=== PATIENT | female | born 1975 | race Caucasian/White ===

== ENCOUNTER 2022-08-19 15:55 | Emergency (ER) | payer MEDICAID ==
[~2022-08-19] VITALS: Ht 152.4 cm; Wt 81.6 kg
[2022-08-19 16:41] VITALS: BP 179/77
--- NOTE | 2022-08-19 17:00 | NUR ---
46/F walked in from home d/t a 05/13" lac to L elbow. Pt cut herself on an open salsa can. No bleeding in triage. Pt denies any other S/S. Denies [facility]
[2022-08-19] MEDS: BACITRACIN OINT 500 UNITS/GM PKT TP ONE (18:00)
--- NOTE | 2022-08-19 18:40 | NUR ---
Patient discharged with v/s stable. Written and verbal after care instructions given and explained. Patient verbalized understanding. Ambulatory with steady gait. All questions addressed prior to discharge. Advised to follow up with PMD.
== END 2022-08-19 18:40 | disposition home or self-care (01) ==
LOC: MED 15:55
DX: S51.012A Laceration without foreign body of left elbow, initial encounter (principal); W26.8XXA Contact with other sharp object(s), not elsewhere classified, initial encounter; Y93.89 Activity, other specified; Y92.009 Unspecified place in unspecified non-institutional (private) residence as the place of occurrence of the external cause; Y99.8 Other external cause status
CPT/HCPCS: 12001; 90471; 90715; 99283

== ENCOUNTER 2022-10-22 09:21 | Emergency (ER) | payer MEDICAID ==
[~2022-10-22] VITALS: Ht 157.5 cm; Wt 75.3 kg
[2022-10-22 09:26] VITALS: BP 182/115
--- NOTE | 2022-10-22 09:53 | NUR ---
PT AMBULATED TO BED 4
--- NOTE | 2022-10-22 10:03 | NUR ---
Pt bibs for possible infection and pain at finger. Pt states she had a splinter 3 months prior which she was unable to completely get out. Finger has a white bump at the tip and some swelling. Pt complains of pain 8/10, non radiating, throbbing, constant. No other complaints. Vss, no ss of acute distress, breathing equal and unlabored, speech clear, famly at bedside. Awaiting MD.
[2022-10-22] MEDS ORDERED: LIDOCAINE MPF 1% 5 ML ONE (11:14)
[2022-10-22 12:00] VITALS: BP 172/98
[2022-10-22] MEDS ORDERED: LIDOCAINE MPF 1% 10 MG/ML VIAL INJ ONE (12:30)
[2022-10-22] MEDS ORDERED: BACITRACIN OINT 500 UNITS/GM PKT TP ONE (12:40)
[2022-10-22] MEDS ORDERED: CEPH-588 PO (12:40)
--- NOTE | 2022-10-22 12:48 | NUR ---
r index finger bandaged
--- NOTE | 2022-10-22 13:01 | NUR ---
I&D'd R middle finger. Pt tolerated well. Pt is a/o x 4, vss, no ss of acute distress, breathing equal and unlabored, speech clear. spoke with pt and gave order for dc. ACI given and reviewed with pt and daughter. Bother verbalized understanding and will folow up with primary.
== END 2022-10-22 12:58 | disposition home or self-care (01) ==
LOC: MED 09:21
DX: L03.011 Cellulitis of right finger (principal); Z79.2 Long term (current) use of antibiotics
CPT/HCPCS: 26011; 99284; J2001